=== PATIENT | female | born 2000 | race Caucasian/White ===

== ENCOUNTER → 2020-05-19 16:14 | Outpatient (CLI) | payer OTHER, SELFPAY ==
--- NOTE | 2020-05-19 16:17 | DI.RAD.S_ITS ---
PROCEDURE: XR ANKLE LT MIN 3V INDICATIONS: left ankle pain TECHNIQUE: 3 views of the ankle were acquired. COMPARISON: None. FINDINGS: Bones: No fractures or dislocations. Ankle mortise is normally aligned. No suspicious bony lesions. An os trigonum is incidentally noted. Soft tissues: No tibiotalar joint effusion. Achilles tendon appears normal. Mild soft tissue edema over the lateral malleolus. IMPRESSION: No acute osseous abnormality is seen. Mild soft tissue prominence is seen over the lateral malleolus. If there is suspicion for soft tissue injury, an MRI may be obtained for further evaluation. Dictated by: Joe Carlson M.D. on 05/19/2020 at 16:54 Approved by: Joe Carlson M.D. on 05/19/2020 at 16:56
== END ==
PROVIDERS: Referring Provider Nurse Practitioner; Visit Provider Nurse Practitioner
DX: M25.572 Pain in left ankle and joints of left foot (principal)
CPT/HCPCS: 73610